=== PATIENT | female | born 1975 | race Caucasian/White ===

== ENCOUNTER → 2021-03-03 10:34 | Outpatient (BNVA) | payer OTHER, SELFPAY | PROVIDERS: Visit Provider Nurse Practitioner Family | DX: J06.9 Acute upper respiratory infection, unspecified (principal); Z20.822 Contact with and (suspected) exposure to COVID-19 | CPT/HCPCS: 87635 ==

== ENCOUNTER 2022-02-24 17:18 | Emergency (ER) | payer SELFPAY ==
[2022-02-24 17:22] VITALS: BP 118/83; PULSE 120; RESP 20; TEMP 36.9; O2SAT 97; BMI 19.2
--- NOTE | 2022-02-24 18:10 | ECG_ITS ---
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 Measurements Intervals [place] Rate: 122 P: 77 MN: 104 QRS: 87 QRSD: 82 T: 66 QT: 299 QTc: 426 Interpretive Statements SINUS TACHYCARDIA WITH SHORT MN INTERVAL Poor R wave progression ABNORMAL RHYTHM ECG INTERPRETATION BASED ON A DEFAULT AGE OF 40 YEARS Compared to ECG 05/06/2019 22:05:51 Short MN interval now present Sinus rhythm no longer present Electronically Signed On 02-24-2022 22:30:06 CDT by Faith Somers M.D. [email or web address] hospitalJ [email or web address] Renovationscle[facility].RADLIVE/store/NU/[id number] f
--- NOTE | 2022-02-24 18:10 | XRR_ITS ---
PROCEDURE INFORMATION: Exam: XR Chest Exam date and time: 02/24/2022 6:23 PM Age: 47 years old Clinical indication: Chest wall pain; Additional info: Cp TECHNIQUE: Imaging protocol: Radiologic exam of the chest. Views: 1 view. COMPARISON: CT Chest/Abdomen/Pelvis w IV* 05/06/2019 10:10 PM FINDINGS: Lungs: There is a calcified granuloma in the lateral left upper lung. Lungs are otherwise clear. Pleural spaces: There is no pleural effusion or pneumothorax. Heart/Mediastinum: Cardiomediastinal contours are unremarkable. Bones/joints: Bones are unremarkable. XR/XR chest 1V portable [id number] IMPRESSION: No acute findings.
[2022-02-24 19:45] LABS: Basophils # 0.1 10^3/uL (0.0-0.1); Basophils % 0.6 %; Eosinophils # 0.1 10^3/uL (0.0-0.8); Hematocrit 43.2 % (37.0-47.0); Hemoglobin 14.9 g/dL (11.5-15.3); Lymphocytes # 4.3 10^3/uL (0.8-4.8); Lymphocytes % 37.7 %; Mean Corpuscular HGB Conc 34.5 g/dL (30.0-36.0); Mean Corpuscular Hemoglobin 30.5 pg (28.0-34.0); Mean Corpuscular Volume 88.5 fl (81-99); Monocytes # 0.6 10^3/uL (0.2-0.9); Monocytes % 5.3 %; Neutrophils % 54.8 %; Nucleated Red Blood Cells % 0 %; Platelet Count 270 10^3/cmm (130-400); Red Blood Count 4.88 10^6/uL (4.1-5.3); Red Cell Distribution Width 12.3 % (12.1-15.1); White Blood Count 11.5 10^3/uL (4.0-10.0)
[2022-02-24 20:06] LABS: Alanine Aminotransferase 13 U/L (0-33); Albumin Level 4.4 g/dL (3.5-5.2); Alkaline Phosphatase 77 IU/L (35-105); Anion Gap 16.4 (5-19); Aspartate Amino Transferase 10 U/L (0-32); Blood Urea Nitrogen 22 mg/dL (6-20); Calcium 10.1 mg/dL (8.5-10.5); Carbon Dioxide 24 mmol/L (22-29); Chloride 95 mmol/L (98-107); Globulin 2.9 g/dL (1.3-4.6); Glomerular Filtration Rate 133.4 mL/min (90-130); Glucose 245 mg/dL (65-115); Osmolality Calculated 283 mOsm/kg (285-295); Potassium 4.4 mmol/L (3.5-5.1); Sodium 131 mmol/L (136-145); Total Bilirubin 0.4 mg/dL (0.15-1.2); Total Protein 7.3 g/dL (6.6-8.7)
[2022-02-24 20:21] LABS: Slide Review Slide Review Perform
[2022-02-24 20:46] LABS: Troponin(5th) Baseline 8 ng/L (0-10)
[2022-02-24 21:46] LABS: Troponin 5 2HR 7.51 ng/L (0-10)
[2022-02-24 21:52] LABS: Troponin 5 2HR Delta -0.49 ABS# (0-10)
--- NOTE | 2022-02-24 22:53 | ED_ITS ---
HPI - Chest Pain General: Chief Complaint: Chest Pain Stated Complaint: knot in chest, pressure on left arm Time Seen by Provider: 02/24/22 22:09 Source: patient Mode of arrival: ambulatory Limitations: no limitations History of Present Illness: 47-year-old female states she has felt a knot on her upper left chest has been painful to touch. States has been a sharp pain that goes down her arm over the last 3 days. States it is improved with rest. She denies any fevers denies any shortness of breath. Patient denies any nausea or vomiting. She denies any fevers. Associated symptoms: Deny abdominal pain, dyspnea, fever(s), nausea or vomiting Review of Systems Const: Denies: fever(s), chills, body aches or change in appetite Eyes: Denies: blurry vision or eye discomfort ENMT: Denies: throat pain or dental pain Card: Reports: chest pain Resp: Denies: dyspnea GI: Denies: abdominal pain, nausea, vomiting or diarrhea : Denies: dysuria Musc: Denies: neck pain or back pain Skin/Breast: Denies: rash Neuro: Denies: headache(s) Psych: Denies: depression Beka/Lymph: Denies: easy bruising All/Imm: Denies: urticaria PFS ED PFSH: Medical History (Updated 02/24/22 @ 22:53 by Karan De MD) Diabetes type 2, controlled Female Reproductive History: Date of last menstrual period: 09/06/06 Physical Exam Const: COMMON NORMALS: no acute distress, patient oriented x3 and healthy appearing HENMT: COMMON NORMALS: normocephalic and atraumatic HEAD & SCALP: normocephalic and atraumatic Eye: COMMON NORMALS: Equal, round and reactive pupils present and EOMs intact bilaterally PUPIL: Yes Equal, round and reactive pupils present Neck/C-Spine: COMMON NORMALS: full ROM and supple Chest: COMMONS NORMALS: normal inspection of the chest OTHER: Point tender to left chest wall no obvious mass palpated Resp: COMMON NORMALS: normal respiratory effort, No retractions, No use of accessory muscles and clear to auscultation bilaterally AUSCULTATION: clear to auscultation bilaterally Cardio: COMMON NORMALS: regular rate, regular rhythm and No murmurs present (Cardio) RATE: regular rate RHYTHM: regular rhythm GI: COMMON NORMALS: Normal to inspection, nondistended, normoactive bowel sounds present, Soft to palpation, non-tender and no masses PALPATION: Yes Soft to palpation Extremity: COMMON NORMALS: normal to inspection and full ROM Neuro: COMMON NORMALS: patient oriented x3, moves all extremities and no focal motor deficits Psych: COMMON NORMALS: mental status grossly normal, Normal thought process present and cooperative THOUGHT PROCESS: Normal thought process present Skin: COMMON NORMALS: no rashes or lesions noted and no wounds GENERAL SKIN EXAM: no rashes or lesions noted Course Vital Signs: Vital signs: Vital Signs Temperature 98.4 F 02/24/22 17:22 Pulse Rate 120 H 02/24/22 17: Respiratory Rate 20 H 02/24/22 17: Blood Pressure 118/83 02/24/22 17: Pulse Oximetry 97 02/24/22 17:22 MDM - Chest Pain Medical Decision Making Patient presents for chest pains atypical in nature is likely muscular in nature. Was not able to palpate any specific mass no sign of any breast tissue mass. We will get her follow-up with PCP she is to return if worsening she understands agrees to plan. Lab Data : 02/24/22 19:06 02/24/22 19:06 Radiology Impressions Chest X-Ray 02/24/22 18:10 IMPRESSION: No acute findings. Laboratory Results WBC 11.5 10^3/uL (4.0-10.0) H 02/24/22 19:06 RBC 4.88 10^6/uL (4.1-5.3) 02/24/22 19:06 Hgb 14.9 g/dL (11.5-15.3) 02/24/22 19:06 Hct 43.2 % (37.0-47.0) 02/24/22 19:06 MCV 88.5 fl (81-99) 02/24/22 19:06 MCH 30.5 pg (28.0-34.0) 02/24/22 19:06 MCHC 34.5 g/dL (30.0-36.0) 02/24/22 19:06 RDW 12.3 % (12.1-15.1) 02/24/22 19:06 Plt Count 270 10^3/cmm (130-400) 02/24/22 19:06 MPV 10.0 fL (7.4-10.4) 02/24/22 19:06 Neut % (Auto) 54.8 % 02/24/22 19:06 Lymph % (Auto) 37.7 % 02/24/22 19:06 Ballard % (Auto) 5.3 % 02/24/22 19:06 Eos % (Auto) 1.0 % 02/24/22 19:06 Baso % (Auto) 0.6 % 02/24/22 19:06 Neut # (Auto) 6.30 10^3/uL (1.8-7.7) 02/24/22 19:06 Lymph # (Auto) 4.3 10^3/uL (0.8-4.8) 02/24/22 19:06 Ballard # (Auto) 0.6 10^3/uL (0.2-0.9) 02/24/22 19:06 Eos # (Auto) 0.1 10^3/uL (0.0-0.8) 02/24/22 19:06 Baso # (Auto) 0.1 10^3/uL (0.0-0.1) 02/24/22 19:06 Nucleated RBC % (auto) 0 % 02/24/22 19:06 Nucleated RBCs # 0.0 /100WBC 02/24/22 19:06 Sodium 131 mmol/L (136-145) L 02/24/22 19:06 Potassium 4.4 mmol/L (3.5-5.1) 02/24/22 19:06 Chloride 95 mmol/L (98-107) L 02/24/22 19:06 Carbon Dioxide 24 mmol/L (22-29) 02/24/22 19:06 Anion Gap 16.4 (5-19) 02/24/22 19:06 BUN 22 mg/dL (6-20) H 02/24/22 19:06 Creatinine 0.5 mg/dL (0.5-0.9) 02/24/22 19:06 GFR Calculation 133.4 mL/min (90-130) H 02/24/22 19:06 Glucose 245 mg/dL (65-115) H 02/24/22 19:06 Calculated Osmolality 283 mOsm/kg (285-295) L 02/24/22 19:06 Calcium 10.1 mg/dL (8.5-10.5) 02/24/22 19:06 Total Bilirubin 0.4 mg/dL (0.15-1.2) 02/24/22 19:06 AST 10 U/L (0-32) 02/24/22 19:06 ALT 13 U/L (0-33) 02/24/22 19:06 Alkaline Phosphatase 77 IU/L (35-105) 02/24/22 19:06 Troponin T Baseline 8 ng/L (0-10) 02/24/22 19:06 Troponin T 120 Minute 7.51 ng/L (0-10) 02/24/22 21:19 Delta Troponin T -0.49 ABS# (0-10) L 02/24/22 21:19 Total Protein 7.3 g/dL (6.6-8.7) 02/24/22 19:06 Albumin 4.4 g/dL (3.5-5.2) 02/24/22 19:06 Globulin 2.9 g/dL (1.3-4.6) 02/24/22 19:06 Discharge Plan Discharge Patient Disposition: Home Clinical Impression: Chest pain Qualifiers: Chest pain type: unspecified Qualified Code(s): R07.9 - Chest pain, unspecified Condition: Stable Prescriptions: New Naprosyn 500 mg tablet 500 mg PO BID PRN (Reason: pain) Qty: 20 0RF No Action Lantus Solostar U-100 Insulin 100 unit/mL (3 mL) insulin pen 10 unit SUBCUT BID [id number] Discharge Orders: Discharge ED (Routine); Ordered 02/24/22 Ordered By: Karan De Discharge Diet: Advance as tolerated Discharge Activity: Resume usual activity Patient Instructions: Chest Wall Pain (ED) Coding Level of Care Code ED Die Maker Electronic for Valarie Rivera
[2022-02-24] MEDS: HYDROcodone-acetaminophen 5-325 mg Tablet 1 TAB PO (23:23)
[2022-02-24 23:30] VITALS: BP 127/71; PULSE 101; RESP 18; TEMP 36.7; O2SAT 99
--- NOTE | 2022-02-25 09:53 | PC.SOCIAL ---
PCP Follow Up CM called and spoke with patient who chooses [facility] under sliding scale. CM called to schedule an appointment and had to leave a voicemail. CM will follow up.
--- NOTE | 2022-02-25 13:27 | PC.SOCIAL ---
PCP Appointment Spoke with [facility], they report that patient will need to call them herself before they can schedule her an appointment. Called and updated patient and provided [facility] phone number to her.
== END 2022-02-24 23:32 | disposition home or self-care (01) ==
PROVIDERS: Emergency Provider Emergency Medicine
DX: R07.9 Chest pain, unspecified (principal); Z79.4 Long term (current) use of insulin; E11.9 Type 2 diabetes mellitus without complications
CPT/HCPCS: 71045; 80053; 84484; 85025; 93005; 99284